=== PATIENT | female | born 1960 | race Caucasian/White ===

== ENCOUNTER → 2024-03-19 13:55 | Outpatient (REF) | payer MEDICARE, OTHER, SELFPAY | LOC: HWRAD 13:55 | PROVIDERS: ATTENDING PHYSICIAN Internal Medicine | DX: M25.511 Pain in right shoulder (principal); Z68.20 Body mass index [BMI] 20.0-20.9, adult; G89.29 Other chronic pain | CPT/HCPCS: 73030 ==

== ENCOUNTER → 2024-03-31 08:01 | Outpatient (REF) | payer MEDICARE, OTHER, SELFPAY | LOC: HWRAD 08:01 | PROVIDERS: ATTENDING PHYSICIAN Internal Medicine | DX: Z13.820 Encounter for screening for osteoporosis (principal); M81.0 Age-related osteoporosis without current pathological fracture | CPT/HCPCS: 77063; 77067; 77080 ==